=== PATIENT | male | born 1960 | race Caucasian/White ===

== ENCOUNTER → 2016-07-01 | Outpatient (CLI) | payer OTHER ==
[~2016-07-01] VITALS: Ht 165.1 cm; Wt 97.5 kg
[~2016-07-01] MED LIST: CIPRO500 MG PO; COZAAR100 MG PO; FLOMAX0.4 MG PO; LOSARTAN POTAS100 MG PO; NAPROSYN500 MG PO; OXAYDO5 MG PO; PANTOPRAZOLE SO40 MG PO; PERCOCET 5/31 TABLET PO; PRAVACHOL40 MG PO; PRAVASTATIN SOD40 MG PO; PREDNISONE20 MG PO; PROTONIX40 MG PO; TAMSULOSIN HCL0.4 MG PO; TESSALON PERLE100 MG PO; UROCIT-K15 MEQ PO; VENTOLIN HFA18 GM IH
== END | disposition home or self-care (01) ==
LOC: AMB 09:54
PROC: 0TF3XZZ Fragmentation in Right Kidney Pelvis, External Approach (ICD-10-PCS; principal; 2016-07-01)
DX: N20.0 Calculus of kidney (principal); I10 Essential (primary) hypertension; E78.5 Hyperlipidemia, unspecified; K21.9 Gastro-esophageal reflux disease without esophagitis; J44.9 Chronic obstructive pulmonary disease, unspecified; Z87.891 Personal history of nicotine dependence
CPT/HCPCS: 74010

== ENCOUNTER 2016-07-02 05:11 | Emergency (ER) | payer OTHER ==
[~2016-07-02] VITALS: Ht 165.1 cm; Wt 93.9 kg
[~2016-07-02 05:11] MED LIST changes: -CIPRO500 MG PO; -OXAYDO5 MG PO
[2016-07-02 05:59] LABS: HEMATOCRIT 48.2 % (38.0-50.0); MCH 29.3 PG (29.0-34.0); MCHC 33.6 G/DL (30.0-36.0); MCV 87.3 FL (86-99); MEAN PLAT.VOLUME 11.4 uM^3 (9.0-12.4); PLATELET COUNT 196 K/uL (156-360); RBC DIS.WIDTH-CV 13.7 % (11.8-14.6); RBC DIS.WIDTH-SD 43.1 % (39-53); RED BLOOD COUNT 5.52 M/uL (4.00-5.50); WHITE BLOOD COUNT 7.1 K/uL (4.1-10.2)
[2016-07-02 06:04] LABS: CHLORIDE 108 mEq/L (99-109); POTASSIUM 3.9 mEq/L (3.7-5.4)
[2016-07-02 06:05] LABS: SODIUM 143 mEq/L (136-147)
[2016-07-02 06:07] LABS: GLUCOSE 117 mg/dL (70-99)
[2016-07-02 06:08] LABS: ANION GAP 11 MEQ/L (2-14)
[2016-07-02 06:09] LABS: TOTAL BILIRUBIN 0.7 mg/dL (0.0-1.0)
[2016-07-02 06:10] LABS: ALKALINE PHOSPHATASE 69 IU/L (3-129); GFR ESTIMATE (CALCULATED) > 59 mL/min/
[2016-07-02 06:12] LABS: UREA NITROGEN (BUN) 14 mg/dL (9-23)
[2016-07-02] MEDS ORDERED: OXAYDO5 MG PO (06:49)
[2016-07-02 09:04] LABS: ADD MIUA? YES; BILIRUBIN NEGATIVE; BLOOD LARGE; COLOR DK YELLOW ((YELLOW)); GLUCOSE (STRIP) NEGATIVE; KETONES NEGATIVE; LEUKOCYTES SMALL; NITRITE NEGATIVE; PH, URINE 5.5 (5-8); PROTEIN (STRIP) 30; SPECIFIC GRAVITY 1.023 (1.000-1.030); UROBILINOGEN 0.2 MG/DL (0.2-1.0)
[2016-07-02 09:27] LABS: EPITHELIAL CELLS RARE /HPF; PATHOLOGICAL CAST PRESENT; SMALL ROUND CELL NONE SEEN; WHITE BLOOD CELLS 20-30 /HPF (0-5); YEAST-LIKE CELL PRESENT
[2016-07-02 09:46] LABS: BACTERIA 2+ /HPF; CASTS NONE SEEN /LPF; CRYSTALS NONE SEEN; MUCUS 1+ /LPF; RED BLOOD CELLS 40-50 /HPF (0-5); UCUL ADDED? YES
[2016-07-02] MEDS ORDERED: CIPRO500 MG PO (10:13)
[2016-07-02 10:33] VITALS: BP 143/106
== END 2016-07-02 10:37 | disposition home or self-care (01) ==
LOC: EME 05:11
DX: N23 Unspecified renal colic (principal); N39.0 Urinary tract infection, site not specified; Z98.890 Other specified postprocedural states; Z87.442 Personal history of urinary calculi; I10 Essential (primary) hypertension; E78.5 Hyperlipidemia, unspecified; Z87.891 Personal history of nicotine dependence
CPT/HCPCS: 80053; 81003; 85027; 87086; 99281; 99285; J1885; J2405; J7030

== ENCOUNTER 2017-07-10 13:07 | Emergency (ER) | payer SELFPAY ==
[~2017-07-10] VITALS: Ht 165.1 cm; Wt 75.6 kg
[~2017-07-10 13:07] MED LIST changes: +CIPRO500 MG PO; +OXAYDO5 MG PO
[2017-07-10 14:23] LABS: BILIRUBIN NEGATIVE; BLOOD LARGE; COLOR YELLOW ((YELLOW)); GLUCOSE (STRIP) NEGATIVE; KETONES 5; LEUKOCYTES TRACE; NITRITE NEGATIVE; PROTEIN (STRIP) 30; SPECIFIC GRAVITY 1.016 (1.000-1.030); UROBILINOGEN 0.2 MG/DL (0.2-1.0)
[2017-07-10 14:24] LABS: HEMATOCRIT 51.3 % (38.0-50.0); HEMOGLOBIN 17.8 G/DL (12.5-16.6); MCH 30.3 PG (29.0-34.0); MCHC 34.7 G/DL (30.0-36.0); MCV 87.4 FL (86-99); PLATELET COUNT 250 K/uL (156-360); RBC DIS.WIDTH-CV 12.6 % (11.8-14.6); RBC DIS.WIDTH-SD 40.8 % (39-53); RED BLOOD COUNT 5.87 M/uL (4.00-5.50); WHITE BLOOD COUNT 15.4 K/uL (4.1-10.2)
[2017-07-10 14:27] LABS: APPEARANCE SL.HAZY ((CLEAR))
[2017-07-10 14:36] LABS: CHLORIDE 106 mEq/L (99-109); POTASSIUM 4.4 mEq/L (3.7-5.4); SODIUM 140 mEq/L (136-147)
[2017-07-10 14:37] LABS: GLUCOSE 107 mg/dL (70-99)
[2017-07-10 14:41] LABS: CREATININE 1.1 mg/dL (0.6-1.3); GFR ESTIMATE (CALCULATED) > 59 mL/min/ (58.99-99999)
[2017-07-10 14:42] LABS: UREA NITROGEN (BUN) 12 mg/dL (9-23)
[2017-07-10 14:45] LABS: BACTERIA NONE SEEN /HPF; CALCIUM OXALATE CRYSTALS 3+ /HPF; EPITHELIAL CELLS RARE /HPF; MUCUS 1+ /LPF; RED BLOOD CELLS TNTC /HPF (0-5)
[2017-07-10] MEDS ORDERED: ZOFRAN ODT4 MG PO (15:09)
[2017-07-10] MEDS ORDERED: NAPROSYN500 MG PO (15:09)
[2017-07-10] MEDS ORDERED: PERCOCET 5/31 TABLET PO (15:09)
[2017-07-10] MEDS ORDERED: FLOMAX0.4 MG PO (15:09)
[2017-07-10] MEDS ORDERED: CIPRO500 MG PO (15:09)
[2017-07-10 15:46] VITALS: BP 146/92
== END 2017-07-10 15:48 | disposition home or self-care (01) ==
LOC: EME 13:07
PROVIDERS: Nurse Practitioner Family
DX: N13.2 Hydronephrosis with renal and ureteral calculous obstruction (principal); D72.829 Elevated white blood cell count, unspecified; R31.9 Hematuria, unspecified; R06.02 Shortness of breath; K57.30 Diverticulosis of large intestine without perforation or abscess without bleeding; N40.0 Benign prostatic hyperplasia without lower urinary tract symptoms; M43.16 Spondylolisthesis, lumbar region; I10 Essential (primary) hypertension; E78.5 Hyperlipidemia, unspecified; Z87.442 Personal history of urinary calculi; Z87.891 Personal history of nicotine dependence
CPT/HCPCS: 74176; 80048; 81003; 85027; 87086; 93005; 99281; 99285; J1885; J3010; J7030

== ENCOUNTER 2017-09-10 13:27 | Emergency (ER) | payer OTHER ==
[~2017-09-10] VITALS: Ht 160 cm; Wt 78.0 kg
[~2017-09-10 13:27] MED LIST changes: +ZOFRAN ODT4 MG PO
[2017-09-10 14:55] LABS: HEMATOCRIT 49.6 % (38.0-50.0); HEMOGLOBIN 16.8 G/DL (12.5-16.6); MCH 30.2 PG (29.0-34.0); MCHC 33.9 G/DL (30.0-36.0); MCV 89.2 FL (86-99); PLATELET COUNT 201 K/uL (156-360); RBC DIS.WIDTH-CV 12.8 % (11.8-14.6); RBC DIS.WIDTH-SD 41.9 % (39-53); RED BLOOD COUNT 5.56 M/uL (4.00-5.50); WHITE BLOOD COUNT 10.3 K/uL (4.1-10.2)
[2017-09-10 15:05] LABS: CHLORIDE 106 mEq/L (99-109); POTASSIUM 4.3 mEq/L (3.7-5.4); SODIUM 143 mEq/L (136-147)
[2017-09-10] MEDS ORDERED: FLOMAX0.4 MG PO (15:05)
[2017-09-10] MEDS ORDERED: NAPROSYN500 MG PO (15:05)
[2017-09-10 15:06] LABS: GLUCOSE 101 mg/dL (70-99)
[2017-09-10 15:10] LABS: GFR ESTIMATE (CALCULATED) > 59 mL/min/ (58.99-99999)
[2017-09-10 15:11] LABS: UREA NITROGEN (BUN) 12 mg/dL (9-23)
[2017-09-10 15:34] LABS: APPEARANCE CLEAR ((CLEAR)); BILIRUBIN NEGATIVE; BLOOD MODERATE; COLOR YELLOW ((YELLOW)); GLUCOSE (STRIP) NEGATIVE; KETONES NEGATIVE; LEUKOCYTES TRACE; NITRITE NEGATIVE; PROTEIN (STRIP) NEGATIVE; UROBILINOGEN 0.2 MG/DL (0.2-1.0)
[2017-09-10 15:43] LABS: BACTERIA RARE /HPF; CALCIUM OXALATE CRYSTALS 1+ /HPF; EPITHELIAL CELLS RARE /HPF; MUCUS TRACE /LPF
[2017-09-10 17:04] VITALS: BP 150/88
== END 2017-09-10 17:05 | disposition home or self-care (01) ==
LOC: RME 13:27 → EME 13:27 → RME 17:05
PROVIDERS: Nurse Practitioner Family
DX: N20.2 Calculus of kidney with calculus of ureter (principal); K40.90 Unilateral inguinal hernia, without obstruction or gangrene, not specified as recurrent; R05 Cough; Z87.442 Personal history of urinary calculi
CPT/HCPCS: 74018; 76882; 80048; 81003; 85027; 99281; 99283

== ENCOUNTER → 2017-10-08 | Outpatient (CLI) | payer OTHER | END | disposition home or self-care (01) | LOC: CDC 11:42 | DX: R94.31 Abnormal electrocardiogram [ECG] [EKG] (principal) | CPT/HCPCS: 93000 ==

== ENCOUNTER 2017-10-13 06:55 | Day surgery (SDC) | payer OTHER ==
[~2017-10-13] VITALS: Ht 167.6 cm; Wt 77.1 kg
[2017-10-13 08:01] VITALS: BP 135/95
[2017-10-13] MEDS ORDERED: PERCOCET 7.51 TABLET PO (10:06)
[2017-10-13 12:55] VITALS: BP 147/90
[2017-10-13 14:15] VITALS: BP 129/98
== END 2017-10-13 14:30 | disposition home or self-care (01) ==
LOC: SDC
PROC: 0YU50JZ Supplement Right Inguinal Region with Synthetic Substitute, Open Approach (ICD-10-PCS; principal; 2017-10-13)
DX: K40.90 Unilateral inguinal hernia, without obstruction or gangrene, not specified as recurrent (principal); I10 Essential (primary) hypertension; E78.00 Pure hypercholesterolemia, unspecified; F17.200 Nicotine dependence, unspecified, uncomplicated
CPT/HCPCS: 71046; C1781; J0690; J1100; J1170; J1885; J2250; J2405; J2710; J3010; J7643; S0020

== ENCOUNTER 2017-11-19 11:24 | Emergency (ER) | payer OTHER ==
[~2017-11-19] VITALS: Ht 160 cm; Wt 74.3 kg
[~2017-11-19 11:24] MED LIST changes: +PERCOCET 7.51 TABLET PO
[2017-11-19] MEDS ORDERED: TESSALON200 MG PO (14:41)
[2017-11-19] MEDS ORDERED: VENTOLIN HFA18 GM IH (14:41)
[2017-11-19 14:59] VITALS: BP 127/89
== END 2017-11-19 14:59 | disposition home or self-care (01) ==
LOC: EME 11:24
DX: J20.9 Acute bronchitis, unspecified (principal); F17.200 Nicotine dependence, unspecified, uncomplicated; E78.5 Hyperlipidemia, unspecified; K21.9 Gastro-esophageal reflux disease without esophagitis; Z87.442 Personal history of urinary calculi
CPT/HCPCS: 94640; 99281; 99283

== ENCOUNTER 2018-01-12 05:07 | Emergency (ER) | payer OTHER ==
[~2018-01-12] VITALS: Ht 162.6 cm; Wt 74.2 kg
[~2018-01-12 05:07] MED LIST changes: +TESSALON200 MG PO
[2018-01-12] MEDS ORDERED: NAPROSYN500 MG PO (08:12)
[2018-01-12 08:24] VITALS: BP 153/101
== END 2018-01-12 08:26 | disposition home or self-care (01) ==
LOC: EME 05:07
DX: S42.442A Displaced fracture (avulsion) of medial epicondyle of left humerus, initial encounter for closed fracture (principal); W01.0XXA Fall on same level from slipping, tripping and stumbling without subsequent striking against object, initial encounter; E78.5 Hyperlipidemia, unspecified; K21.9 Gastro-esophageal reflux disease without esophagitis; F17.200 Nicotine dependence, unspecified, uncomplicated
CPT/HCPCS: 73080; 73090; 99281; 99284